=== PATIENT | male | born 1990 | race Caucasian/White ===

== ENCOUNTER 2017-01-23 19:46 | Inpatient (IN) | payer OTHER ==
[~2017-01-23] VITALS: Ht 172.7 cm; Wt 71.3 kg
--- NOTE | 2017-01-23 20:45 | ED GENERAL ADULT ---
See Addendum History of Present Illness General Chief Complaint: Psychiatric Related Complaint Stated Complaint: +HI Source: patient, family Exam Limitations: no limitations Vital Signs & Intake/Output Vital Signs & Intake/Output Vital Signs Date Time Temp Pulse Resp B/P B/P Pulse O2 O2 Flow FiO2 Mean Ox Delivery Rate 01/23 2230 98.3 112 18 126/60 98 Room Air 01/23 2010 98.3 97 20 158/88 97 Room Air Allergies Coded Allergies: No Known Allergies (01/23/17) Triage Note: PT BRE FROM HOME AFTER SENDING THREATHENING MESSAGES TO HIS EXGIRLFRIEND AND TELLING HER TO GIVE HIM MONEY THEY BOTH KNOW THEY DO NOT HAVE. BOTH HIS MOTHER AND EXGIRLFRIEND ARE WORRIED FOR HIS PSYCHOLOGICAL SAFETY. PT IS PAPERED BY DEPT OF MENTAL HEALTH AND ADDICTION. Triage Nurses Notes Reviewed? yes HPI: 26-year-old otherwise healthy male presenting status post verbal argument with his girlfriend. Earlier this evening's had sent text messages to his girlfriend threatening her life if she did not give him money. Never indicated an actual plan to how he would hurt her. Denies SI. Denies EtOH or drug use. Denies any physical pain or trauma. Patient evaluation requested by Department of mental health and addiction. (CARLITO DE LA FUENTE PA-C) Past History Travel History Traveled to [place] past 21 day No Medical History Any Pertinent Medical History? 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 No (CARLITO DE LA FUENTE PA-C) Review of Systems Review of Systems Constitutional: Reports: no symptoms. EENTM: Reports: no symptoms. Respiratory: Reports: no symptoms. Cardiovascular: Reports: no symptoms. GI: Reports: no symptoms. Genitourinary: Reports: no symptoms. Musculoskeletal: Reports: no symptoms. Skin: Reports: no symptoms. Neurological/Psychological: Reports: no symptoms. (CARLITO DE LA FUENTE PA-C) Physical Exam Physical Exam General Appearance: well developed/nourished, no apparent distress, alert, awake , comfortable Head: atraumatic Ears, Nose, Throat: normal ENT inspection Respiratory: normal breath sounds, lungs clear Cardiovascular: regular rate/rhythm Gastrointestinal: normal bowel sounds, soft, non-tender Neurologic/Psych: no motor/sensory deficits, awake, alert, oriented x 3, normal gait, classroom coordinator II-XII nml as tested Core Measures ACS in differential dx? No CVA/TIA Diagnosis: No Severe Sepsis Present: No Septic Shock Present: No (SUDHAKAR DUNHAM,CARLITO) Progress Differential Diagnoses I considered the following diagnoses in my evaluation of the patient: [ Aggressive behavior versus underlying psychiatric disorder versus organic etiology] Plan of Care: Orders Procedure Date/time Status Regular Diet 01/24 B Active Continuous Observation Monitor 01/23 2051 Active URINE DRUGS OF ABUSE 01/23 2051 Complete URINALYSIS 01/23 2051 Complete COMPREHENSIVE METABOLIC PANEL 01/23 2051 Complete CBC WITHOUT DIFFERENTIAL 01/23 2051 Complete ED CRISIS PSYCH CONSULT 01/23 2051 Active Laboratory Tests 01/23/172112: Anion Gap 8, Estimated GFR > 60, BUN/Creatinine Ratio 13.3, Glucose 97, Calcium 9.1, Total Bilirubin 0.3, AST 19, ALT 45, Alkaline Phosphatase 64, Total Protein 6.3, Albumin 4.0, Globulin 2.3, Albumin/Globulin Ratio 1.7, CBC w Diff NO MAN DIFF REQ, RBC 4.69 L, MCV 90.4, MCH 30.5, RDW 13.6, MPV 10.0, Gran % 74.3, Lymphocytes % 17.9 L, Monocytes % 6.5, Eosinophils % 0.7, Basophils % 0.6, Absolute Granulocytes 7.6 H, Absolute Lymphocytes 1.8, Absolute Monocytes 0.7 H, Absolute Eosinophils 0.1, Absolute Basophils 0.1, PUBS MCHC 33.8 01/23/17 2100: Urine Opiates Screen < 100.00, Methadone Screen 696 H, Barbiturate Screen < 60, Ur Phencyclidine Scrn < 6.00, Amphetamines Screen < 100, U Benzodiazepines Scrn < 85, Urine Cocaine Screen < 50, Urine Cannabis Screen 8.50, Urine Color YEL, Urine Clarity CLEAR, Urine pH 7.0, Ur Specific [place] <= 1.005, Urine Protein NEG, Urine Ketones NEG, Urine Nitrite NEG, Urine Bilirubin NEG, Urine Urobilinogen 0.2, Ur Leukocyte Esterase NEG, Ur Microscopic EXAM NOT REQUIRED, Urine Hemoglobin NEG, Urine Glucose NEG Labs unremarkable, urine unremarkable for methadone. Patient is medically cleared and psych evaluation requested. Patient sitter at bedside. (CARLITO DE LA FUENTE PA-C) Initial ED EKG: none (CARLITO DE LA FUENTE PA-C) Departure Departure Disposition: STILL A PATIENT Condition: Stable Clinical Impression Primary Impression: Homicidal thoughts Referrals: BRIJESH DEL ROSARIO MD (PCP/Family) Departure Forms: Customer Survey General Discharge Information (CARLITO DE LA FUENTE PA-C) PA/CORRUGATOR OPERATOR Co-Sign Statement Statement: ED Attending supervision documentation- [] I saw and evaluated the patient. I have also reviewed all the pertinent lab results and diagnostic results. I agree with the findings and the plan of care as documented in the PA's/CORRUGATOR OPERATOR's documentation. [X] I have reviewed the ED Record and agree with the PA's/CORRUGATOR OPERATOR's documentation. [] Additions or exceptions (if any) to the PAs/CORRUGATOR OPERATOR's note and plan are summarized below: [] (TIO HUMPHREYS,ROSELYN Ramires) Critical Care Note Critical Care Note Critical Care Time: non-applicable (CARLITO DE LA FUENTE PA-C)
[2017-01-23 21:30] LABS: ABSOLUTE BASOPHIL COUNT 0.1 /CUMM (0.0-0.2); ABSOLUTE EOSINOPHIL COUNT 0.1 /CUMM (0.0-0.7); ABSOLUTE GRANULOCYTE CT 7.6 /CUMM (1.4-6.5); ABSOLUTE LYMPH COUNT 1.8 /CUMM (1.2-3.4); ABSOLUTE MONOCYTE COUNT 0.7 /CUMM (0.10-0.60); BASOPHIL % 0.6 % (0.0-2.0); EOSINOPHIL % 0.7 % (0-5); GRANULOCYTE % 74.3 % (42.2-75.2); HEMATOCRIT 42.4 % (42-52); MEAN CORPUSCULAR HGB 30.5 PG (27.0-31.0); MEAN CORPUSCULAR HGB CONC 33.8 G/DL (33.0-37.0); MEAN CORPUSCULAR VOLUME 90.4 FL (80.0-94.0); PLATELET COUNT 150 /CUMM (130-400); RBC DISTRIBUTION WIDTH 13.6 % (11.5-14.5); RED BLOOD CELL CT 4.69 /CUMM (4.70-6.10); WHITE BLOOD CELL COUNT 10.2 /CUMM (4.8-10.8)
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
[2017-01-24 18:36] VITALS: BP 123/69
[2017-01-24 19:52] VITALS: BP 121/62
[2017-01-25 07:58] VITALS: BP 114/76
--- NOTE | 2017-01-25 08:37 | SOCIAL WORKER PROG NOTE PSYCH ---
Social Work Progress Note Progress Note Pt's ex-girlfriend has provided extensive amounts of screenshots of facebook posts and text messages that demonstrate the concerns noted yesterday. They have been placed in pt's paper chart on CPS. She asked that pt not be told that she provided this information.
--- NOTE | 2017-01-25 11:13 | SOCIAL WORKER TX PLAN PSYCH ---
Treatment Plan - Please Document: - Evidence that there is ongoing collaboration between - the patient and the interdisciplinary team, - including the patient's active participation and - responsibility for engaging in the treatment regimen, - and that the treatment plan is individualized and - relevant to the patient's conditions. - Treatment plan should reflect documentation indicating - that all active therapeutic efforts are included. Strengths/Capabilities: Pt is engaging and co-operative, have supportive mom and ex-girlfriend Physical Limitations (Interventions): none reported Patient Identified Trmt Goals: "I want to be able to help others" Discharge Plan: Patient will go to [facility] Problem/Goals #1 Problem #1: mood stability Goal (Short Term): patient will explore medications to stablize mood and thoughts Goal (Long-Term): patient will identify 2 ways to remain out of the hospital Interventions: patient will be offered medication management with the psychiatrist, groups on coping skills, symptom management, goals group, relaxation, accupuncture, art therapy. Preparation Center Coordinator will help patient identify strengths and explore what is getting in the way of goals. can worker will hold family meeting and assist with coordinating aftercare. DSM5/PS Stressors/Medical Prob Diagnosis' (DSM 5, Stressors, Medical): F29 Unspecified Schizophrenia spectrum and other psychotic disorders R/O schizoaffective bipolar type, R/O bipolar with psychotic features, Cluster B personality traits, hx of opiate use d/o in early remission Current GAF: 28 Treatment Team - Responsibilities of members of the treatment team include: - Medication Management- MD or GENERAL DOC - Medication Administration and Monitoring- Nurse - Group Therapy- Occupational Therapist - 1:1 Therapy,Disch Planning,family involvement-Preparation Center Coordinator
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
[2017-01-25 12:22] VITALS: BP 100/65
[2017-01-25 12:28] VITALS: BP 100/65
[2017-01-25 15:53] VITALS: BP 116/67
[2017-01-25 19:33] VITALS: BP 105/56
--- NOTE | 2017-01-25 19:54 | History & Physical ---
General Information and HPI MD Statement: I have seen and personally examined JEANNINE AGUILAR and documented this H&P. The patient is a 26 year old M who presented with a patient stated chief complaint of . "I do not know why mom my mom keeps making me get evaluated " Source of Information: patient, family Exam Limitations: no limitations History of Present Illness: 26-year-old white male who apparently had an argument with his girlfriend and underlying was threatening girlfriend, he was sent to the emergency room on the crisis pain. His mother is worried about exactly increasing irrational and erratic over the last 3 months. For all these reasons patient is admitted for evaluation and treatment Allergies/Medications Allergies: Coded Allergies: No Known Allergies (01/23/17) Home Med list No Known Home Medications Compliance With Home Meds: UNKNOWN Past History Travel History Traveled to [place] past 21 day No Medical History Neurological: NONE EENT: NONE Cardiovascular: NONE Respiratory: NONE Gastrointestinal: NONE Hepatic: NONE Renal: NONE Musculoskeletal: NONE Psychiatric: NONE Endocrine: NONE Blood Disorders: NONE Cancer(s): NONE LIQUOR INSPECTOR/Reproductive: NONE Isolation History: Standard Surgical History Surgical History: non-contributory Past Family/Social History Psychosocial History ETOH Use: denies use Illicit Drug Use: denies illicit drug use Employment History Employment Unemployed Profession/Employer quit his job of 5 years last month Review of Systems Review of Systems Constitutional: Reports: see HPI. Exam & Diagnostic Data Last 24 Hrs of Vital Signs/I&O Vital Signs Date Time Temp Pulse Resp B/P B/P Pulse O2 O2 Flow FiO2 Mean Ox Delivery Rate 01/25 1933 98.1 86 105/56 01/25 1553 92 116/67 01/25 1228 90 100/65 01/25 1222 90 100/65 01/25 0758 97.5 92 114/76 Physical Exam General Appearance Alert, Oriented X3, Cooperative, No Acute Distress Skin No Rashes, No Breakdown HEENT Atraumatic, PERRLA, EOMI, Mucous Membr. moist/pink Neck Supple, No JVD, No thryomegaly, +2 Carotid Pulse wo Bruit, No LAD Lymphatic Axillary nl, Cervical nl Cardiovascular Regular Rate, No Murmurs Lungs Clear to Auscultation, Normal Air Movement Abdomen Normal Bowel Sounds, Soft, No Tenderness, No Hepatospenomegaly, No Masses Neurological Exam Findings: Normal Gait, Normal Speech, Strength at 5/5 X4 Ext, Normal Tone, Sensation Intact, Cranial Nerves 3-12 NL, Reflexes 2+ Cranial Nerves II through XII: Intact Extremities No Clubbing, No Cyanosis, No Edema, Normal Pulses, No Tenderness/ Swelling Vascular Normal Pulses, Pulses Symmetrical Last 24 Hrs of Labs/Quan: Laboratory Tests 01/23/17 2113: Anion Gap 8, Estimated GFR > 60, BUN/Creatinine Ratio 13.3, Glucose 97, Hemoglobin A1c 5.5, Calcium 9.1, Total Bilirubin 0.3, AST 19, ALT 45, Alkaline Phosphatase 64, Total Protein 6.3, Albumin 4.0, Globulin 2.3, Albumin/Globulin Ratio 1.7, Triglycerides 35, Cholesterol 130, LDL Cholesterol, Calc 77, HDL Cholesterol 46, Cholesterol/HDL Ratio 3, TSH &T3 &Free T4 Intrp 0.848, CBC w Diff NO MAN DIFF REQ, RBC 4.69 L, MCV 90.4, MCH 30.5, RDW 13.6, MPV 10.0, Gran % 74.3, Lymphocytes % 17.9 L, Monocytes % 6.5, Eosinophils % 0.7, Basophils % 0.6, Absolute Granulocytes 7.6 H, Absolute Lymphocytes 1.8, Absolute Monocytes 0.7 H, Absolute Eosinophils 0.1, Absolute Basophils 0.1, PUBS MCHC 33.8 01/23/17 2100: Urine Opiates Screen < 100.00, Methadone Screen 696 H, Barbiturate Screen < 60, Ur Phencyclidine Scrn < 6.00, Amphetamines Screen < 100, U Benzodiazepines Scrn < 85, Urine Cocaine Screen < 50, Urine Cannabis Screen 8.50, Urine Color YEL, Urine Clarity CLEAR, Urine pH 7.0, Ur Specific Rogers <= 1.005, Urine Protein NEG, Urine Ketones NEG, Urine Nitrite NEG, Urine Bilirubin NEG, Urine Urobilinogen 0.2, Ur Leukocyte Esterase NEG, Ur Microscopic EXAM NOT REQUIRED, Urine Hemoglobin NEG, Urine Glucose NEG Assessment/Plan As Ranked By This Provider Problem List: 1. Homicidal thoughts Miscellaneous Miscellaneous Documentation Attending Case Discussed With: BILLY HUMPHREYS,LUCIA Arevalo Primary Care Physician: BRIJESH DEL ROSARIO MD Patient sees these Specialists Psychiatry Level of Patient Care: [facility] Consults Needed: Consulting Specialty: Psychiatry Consulting Physician: Dr. Aranda Reason for Consult: homicidal ideas
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
[2017-01-26 07:42] VITALS: BP 100/61
[2017-01-26 12:13] VITALS: BP 155/58
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
[2017-01-26 19:41] VITALS: BP 112/63
[2017-01-27 07:34] VITALS: BP 110/58
--- NOTE | 2017-01-27 11:12 | SOCIAL WORKER PROG NOTE PSYCH ---
Social Work Progress Note Progress Note Talked to Kevin this morning about applying for insurance. He was agreeable and stated he had been on [place] until about 2 years ago. He called [place] with me. He is elegible for [employer] D retro active to 01/02- 01/01 2018. Application #[id number]. Kevin said he started the [place]. Took a dose last night and this morning. Stated he felt fine. He spent time talking to the medical student individually this morning. He talked about wanting to help other is some way. 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 I told him there are positions out there like peer specialists who are people who have lived experience and they get training to help others. Talked about volunteering as a way to help people as well. 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 He enjoyed that experience and stated he will think about doing it again. Called [facility] and scheduled an intake for . 02/01 at 9:30am.
[2017-01-27 12:12] VITALS: BP 105/66
[2017-01-27 16:03] VITALS: BP 117/63
--- NOTE | 2017-01-27 17:33 | CP SOUTH PROGRESS NOTE PSYCH ---
Psych (Inpt) Progress Note Progress Note Include the following elements, when applicable: Involvement in the active treatment of the patient with behavioral observations of the patient and the patient's response to the treatment. Review of the ongoing treatment process in the context of the treatment plan. Indication of how multi-disciplinary staff members are carrying out the treatment plan. Plans for future interventions and recommendations for revision of the treatment plan. Liaison with other physicians/providers. Progress Note: PSYCHIATRIST NOTE, 01/27/2017: I discussed this patient's progress to date, current mental status, treatment and discharge planning with staff team today in the daily morning ITTM and also met with patient again myself in individual session. He and I went over yesterday's family meeting; while he was able to sympathize with her mother and "ex-"girlfriend's concerns for him he was more "forgiving" of them harboring these worries about him than accepting/taking to heart their many observations of the troublesome changes in his behaivor and thinking over the recent months. However, he is still willing to continue on the [place] trial and denied any negative/side effects from the initial doses; today he is on 300mg 2x/day; tomorrow, if no side effects appear, dose will increase to 900mg/day and as of be increased to total of 1,200mg/day with serum [place] level on 2016. Patient denies any neurovegetative symptoms and his thinking, though rather grandiose at times has not been disordered to the extent of adding a regular neuroleptic dose to the PRN.
[2017-01-28 08:01] VITALS: BP 126/78
[2017-01-28 12:24] VITALS: BP 134/66
--- NOTE | 2017-01-28 14:31 | CP SOUTH PROGRESS NOTE PSYCH ---
See Addendum Psych (Inpt) Progress Note Progress Note Include the following elements, when applicable: Involvement in the active treatment of the patient with behavioral observations of the patient and the patient's response to the treatment. Review of the ongoing treatment process in the context of the treatment plan. Indication of how multi-disciplinary staff members are carrying out the treatment plan. Plans for future interventions and recommendations for revision of the treatment plan. Liaison with other physicians/providers. Progress Note: Chart reviewed and progress d/w nursing staff. Interviewed patient this morning. Pleasant, cooperative, denies complaints. Denies med side effects, depression, psychosis, insomnia, poor appetite. Denies SI/HI. Vitals wnl. No new labs. MSE: well groomed young man sitting near television, dressed appropriately, cooperative with interview with good eye contact. speech wnl. mood "really good ". affect euthymic, non-grandiose, non-expansive, congruent. TP log/solomon, TC without SI/HI, cognition grossly intact, i/j fair. A/P: Continue present management as per primary team.
[2017-01-28 15:38] VITALS: BP 116/72
[2017-01-28 20:14] VITALS: BP 109/69
[2017-01-29 07:40] VITALS: BP 111/72
[2017-01-29 11:54] VITALS: BP 102/60
[2017-01-29 15:47] VITALS: BP 115/72
[2017-01-29 19:58] VITALS: BP 120/68
[2017-01-30 07:46] VITALS: BP 121/76
--- NOTE | 2017-01-30 10:53 | CP SOUTH PROGRESS NOTE PSYCH ---
Psych (Inpt) Progress Note Progress Note [facility] record reviewed BP 121/76, Pulse 84/min, Temp 96.9 No new labs Sleep log showed patient slept well Interviewed patient this morning. Background/Reason for admission: Patient's mother summoned [facility] mobile crisis team to her home, concerned about patient's behavior; he was allegedly making threats/demands to others on the internet which disturbed her, as well as patient's "ex-" girlfriend who is currently living with patient and his mother. While in the E.D. patient was described as consistly thoroughout as "calm...pleasant...cooperative." DSM 5 Diagnoses of record: --Unspecified Bipolar Disorder; MRE Mixed --R/O Bipolar I Disorder, Mixed; MRE Mixed --R/O Bipolar II Disorder; irritable/mixed/hypomanic --Opioid Use Disorder; in sustained full remission (with the help of methadone maintenance--the latter most recently discontinued as of 01/22/2017 by patient's own decision) Mental State 01/30/2017: Pleasant, cooperative, calm, denied side effects from medications. Mood has been good denied feeling hopeless, denied wishing and denied thinking of suicide. He was calm, denied thoughts of violence, denied thoughts of homicide. well groomed young man, dressed appropriately, cooperative with interview with good eye contact. speech wnl. mood "really good". affect euthymic, non-grandiose , non-expansive, congruent. A/P: Continue present medications Slated for lithium level tomorrow AM Will follow up with his regular treatment team tomorrow
[2017-01-30 12:10] VITALS: BP 120/63
[2017-01-30 16:02] VITALS: BP 123/72
[2017-01-30 19:41] VITALS: BP 123/69
[2017-01-31 07:39] VITALS: BP 119/67
[2017-01-31] MEDS ORDERED: NICOTINE PATCH1 EAC2 TOP (10:57)
[2017-01-31] MEDS ORDERED: LITHIUM CARBON300 M4 PO (10:58)
--- NOTE | 2017-01-31 11:17 | SOCIAL WORKER PROG NOTE PSYCH ---
Social Work Progress Note Progress Note Kevin was sitting and reading this morning. Asked how his weekend was? He said it was good. He had visits from Yohana that he said went well. He spoke with his Mom and she will be here for 2pm today. Asked how he was feeling on the [place]? He said he felt really good and hadn't noticed much difference. Feels good about helping others here. He said his appetite has increased since being here, but he considered that a good thing. He really enjoyed the food here. Talked about discharge for after the meeting today. Intake scheduled at [facility] for tomorrow at 9:30am. At 2pm, Kevin, his Mom, Dr. Aranda and I met together. Mom looked upset at the meeting and almost tearful. Dr. Aranda asked her what was going on? She hadn't talked or visited with Kevin. She seems to be feeling rejected by him right now. She is concerned about how he is treating her. Dr. Aranda empathized and validated her concerns and talked about how people can often bring up issues with those closest to them. Kevin was encouraged to help and assist Mom around the house. He talked about feeling good. He seems motivated to continue treatment in the [facility]. He agreed to not smoke any cannabis. He didn 't feel that would really be a problem. Mom is aware of his intake tomorrow at 9:30a. Kevin stated that Yohana will be bringing him. Kevin should be getting his insurance card in the mail. In the meantime they should be able to afford the [place].
[2017-01-31 12:46] VITALS: BP 118/72
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
== END 2017-01-31 14:58 | DRG 753 ==
LOC: ERH 19:46 → CP SOUTH 01-24 10:37 → ERHI 01-24 10:37 → ENTRNSPT 01-24 18:10 → CP SOUTH 01-24 18:28 → CMPTRNSPT 01-25 07:21 → CP SOUTH 01-25 09:54
PROVIDERS: Physician Assistant; ADMIT Psychiatry & Neurology Psychiatry
DX: F31.60 Bipolar disorder, current episode mixed, unspecified (principal); F11.21 Opioid dependence, in remission
CPT/HCPCS: 36415; 80307; 81003; 93005; 93010

== ENCOUNTER 2017-02-09 17:02 | Emergency (ER) | payer OTHER ==
[~2017-02-09] VITALS: Ht 177.8 cm; Wt 79.4 kg
[~2017-02-09 17:02] MED LIST: LITHIUM CARBON300 M4 PO; NICOTINE PATCH1 EAC2 TOP
--- NOTE | 2017-02-09 17:51 | ED PSYCHIATRIC COMPLAINT ---
See Addendum History of Present Illness General Chief Complaint: Psychiatric Related Complaint Stated Complaint: PSYCH EVAL, NON-MED COMPLIANT Source: patient Exam Limitations: no limitations Vital Signs & Intake/Output Vital Signs & Intake/Output Vital Signs Date Time Temp Pulse Resp B/P B/P Pulse O2 O2 Flow FiO2 Mean Ox Delivery Rate 02/09 1913 98.0 76 18 124/62 100 Room Air 02/09 1733 98.2 89 19 128/63 98 Room Air Allergies Coded Allergies: No Known Allergies (02/09/17) Reconcile Medications No Known Home Medications Triage Note: PT BIBA FROM HOME ON DENTIST PAPER FOR GRANDIOSE THOUGHTS AND RELIGIOSITY. HX OF BIPOLAR, NON-COMPLANT WITH LITHIUM. RECENTLY DISCHARGED FROM [facility] LAST WEEK AND DID NOT FOLLOW THROUGH WITH [facility] AND STOPPED TAKING HIS LITHIUM. DENIES SI/HIOR AH/VH. Triage Nurses Notes Reviewed? yes HPI: 26 yo M PMH Bipolar disorder presenting with manic Sx. Per patients mother his has been expressing hyper-jehovah's witness and grandiose thinking ("I am GOD and my mother is my pet"), did not sleep last night, was up posting strange rambling updates on facebook page. Recent psychiatric hospitalization 2 weeks ago for similar presentation, started on lithium, discharged after 4 days once stabilized, enrolled in [facility]. 7-10 days ago patient stopped taking lithiuim and refused to go to [facility] meetings, progressive decline in functioning since that time. Patient has no complaints "I feel fine". Denies AH, VH, SI, HI, decreased sleep or other manic Sx. Denies EtOH or drug use. (ALEISHA HUMPHREYS,BERKLEY) Past History Travel History Traveled to [place] past 21 day No Medical History Any Pertinent Medical History? see below for history Neurological: NONE EENT: NONE Cardiovascular: NONE Respiratory: NONE Gastrointestinal: NONE Hepatic: NONE Renal: NONE Musculoskeletal: NONE Psychiatric: bipolar disease Endocrine: NONE Blood Disorders: NONE Cancer(s): NONE INTENSIVE CARE AMBULANCE PARAMEDIC/Reproductive: NONE Surgical History Surgical History: non-contributory Psychosocial History Who do you live with Other (see notes) What is your primary language Citizen [place] Tobacco Use: Never used ETOH Use: denies use Illicit Drug Use: denies illicit drug use Family History Hx Contributory? Yes (ALEISHA HUMPHREYS,BERKLEY) Review of Systems Review of Systems Constitutional: Reports: no symptoms. EENTM: Reports: no symptoms. Respiratory: Reports: no symptoms. Cardiovascular: Reports: no symptoms. GI: Reports: no symptoms. Genitourinary: Reports: no symptoms. Musculoskeletal: Reports: no symptoms. Skin: Reports: no symptoms. Neurological/Psychological: Reports: no symptoms. Hematologic/Endocrine: Reports: no symptoms. Immunologic/Allergic: Reports: no symptoms. All Other Systems: Reviewed and Negative (BERKLEY MORAES MD) Physical Exam Physical Exam General Appearance: well developed/nourished, mild distress Head: atraumatic Eyes: Bilateral: PERRL, EOMI. Ears, Nose, Throat: normal pharynx, normal ENT inspection, hearing grossly normal Neck: normal inspection, supple Respiratory: normal breath sounds Cardiovascular: regular rate/rhythm Gastrointestinal: soft, non-tender Extremities: normal range of motion Neurological/Psychiatric: no motor/sensory deficits, awake, agitated Skin: intact, normal color, warm/dry Comments: Psychiatric: Pressured speech, mild agitation, labile mood SAD PERSONS Done? patient not suicidal (ALEISHA HUMPHREYS,BERKLEY) Progress Differential Diagnosis: dementia, drug intoxication, drug overdose, drug withdrawal, electrolyte abnormality, encephalitis, hypoglycemia, hypothyroidism, IC hem/mass/tumor, meningitis Plan of Care: Orders Procedure Date/time Status Regular Diet 02/10 B Active ED CRISIS PSYCH CONSULT 02/09 182 Active Add-on Test (ER Only) 02/09 1823 Active THYROID STIMULATING HORMONE 02/09 1738 Complete FREE T4 02/09 1738 Complete URINE DRUGS OF ABUSE 02/09 172 Complete LITHIUM 02/09 1726 Complete ETHANOL 02/09 1726 Complete COMPREHENSIVE METABOLIC PANEL 02/09 1726 Complete CBC WITHOUT DIFFERENTIAL 02/09 1726 Complete Laboratory Tests 02/09/17 1806: Urine Opiates Screen < 100.00, Methadone Screen 138, Barbiturate Screen < 60, Ur Phencyclidine Scrn < 6.00, Amphetamines Screen < 100, U Benzodiazepines Scrn < 85, Urine Cocaine Screen < 50, Urine Cannabis Screen < 5.00 02/09/17 1738: Anion Gap 8, Estimated GFR > 60, BUN/Creatinine Ratio 11.7, Glucose 108 H, Calcium 9.0, Total Bilirubin 0.2, AST 21, ALT 36, Alkaline Phosphatase 63, Total Protein 6.1 L, Albumin 3.8, Globulin 2.3, Albumin/Globulin Ratio 1.7, TSH 2.270 , Free T4 0.87, CBC w Diff NO MAN DIFF REQ, RBC 4.66 L, MCV 91.7, MCH 30.5, RDW 13.9, MPV 10.0, Gran % 61.6, Lymphocytes % 29.4, Monocytes % 6.4, Eosinophils % 2.1, Basophils % 0.5, Absolute Granulocytes 5.7, Absolute Lymphocytes 2.7, Absolute Monocytes 0.6, Absolute Eosinophils 0.2, Absolute Basophils 0, PUBS MCHC 33.2, [place] < 0.2 L, Serum Alcohol < 10.0 Physician MDM: 26 yo M PMH Bipolar disorder presenting with manic Sx. VSS, exam as above. DDx: Psychiatric disease, Intoxication, Hyperthyroidism. Labs including TSH/FT4 unremarkable. U tox negative. Medcially cleared for crisis eval. Evaluated by crisis, plan to monitor ovenight, hold lithium for now, re- evaluate for IOP in AM. The plan of care was discussed with the patient and his mother who expressed agreement and understanding. (ALEISHA HUMPHREYS,BERKLEY) Departure Departure Disposition: STILL A PATIENT Condition: Stable Clinical Impression Primary Impression: Manic episode Referrals: BRIJESH DEL ROSARIO MD (PCP/Family) Departure Forms: Customer Survey General Discharge Information Prescriptions: Current Visit Scripts No Known Home Medications (ALEISHA HUMPHREYS,BERKLEY) PA/SALES RECORD CLERK Co-Sign Statement Statement: ED Attending supervision documentation- [] I saw and evaluated the patient. I have also reviewed all the pertinent lab results and diagnostic results. I agree with the findings and the plan of care as documented in the PA's/SALES RECORD CLERK's documentation. [x] I have reviewed the ED Record and agree with the PA's/SALES RECORD CLERK's documentation. [] Additions or exceptions (if any) to the PAs/SALES RECORD CLERK's note and plan are summarized below: [] (XAVIER COCHRAN DO)
--- NOTE | 2017-02-09 17:53 | ED PSY CRISIS COLLATERAL NOTE ---
Collateral Note Collateral Note Family/Inform/Cari Contacts: Vickie from [facility] called and stated pts Mother called her to say that he had posted threatening things on facebook about her and her , mentioning "the devil", and telling his father, these are your last days on earth". Pt did not follow up with recommendations to attend IOP after discharging from [facility] 01/31/17 after a week admission, and per parents he stopped medications as well. Pt lives in [place] with his parents.
[2017-02-09 18:09] LABS: ABSOLUTE BASOPHIL COUNT 0 /CUMM (0.0-0.2); ABSOLUTE EOSINOPHIL COUNT 0.2 /CUMM (0.0-0.7); ABSOLUTE GRANULOCYTE CT 5.7 /CUMM (1.4-6.5); ABSOLUTE LYMPH COUNT 2.7 /CUMM (1.2-3.4); ABSOLUTE MONOCYTE COUNT 0.6 /CUMM (0.10-0.60); BASOPHIL % 0.5 % (0.0-2.0); EOSINOPHIL % 2.1 % (0-5); GRANULOCYTE % 61.6 % (42.2-75.2); HEMATOCRIT 42.7 % (42-52); MEAN CORPUSCULAR HGB 30.5 PG (27.0-31.0); MEAN CORPUSCULAR HGB CONC 33.2 G/DL (33.0-37.0); MEAN CORPUSCULAR VOLUME 91.7 FL (80.0-94.0); PLATELET COUNT 175 /CUMM (130-400); RBC DISTRIBUTION WIDTH 13.9 % (11.5-14.5); RED BLOOD CELL CT 4.66 /CUMM (4.70-6.10); WHITE BLOOD CELL COUNT 9.3 /CUMM (4.8-10.8)
[2017-02-09 18:20] LABS: LITHIUM < 0.2 mmol/L (0.6-1.2)
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
[2017-02-10 10:16] VITALS: BP 124/73
--- NOTE | 2017-02-13 13:48 | IOP INCIDENTAL NOTE ---
IOP Incidental Note Details: Patient did not attend program today. Clinician left patient a voice message.
== END 2017-02-10 10:20 ==
LOC: ERH 17:02
PROVIDERS: Student in an Organized Health Care Education/Training Program
DX: F31.9 Bipolar disorder, unspecified (principal)
CPT/HCPCS: 80307; G0463; G0480